=== PATIENT | male | born 1990 | race Caucasian/White ===

== ENCOUNTER 2016-05-21 01:53 | Emergency (ER) | payer MEDICAID ==
[~2016-05-21] VITALS: Ht 185.4 cm; Wt 77.1 kg
[2016-05-21 01:55] VITALS: BP 136/80
[2016-05-21] MEDS ORDERED: NKM (01:56)
[2016-05-21] MEDS ORDERED: Ketorolac 60mg Inj IM ONE (02:30)
[2016-05-21] MEDS ORDERED: ZOFRAN ODT4 MG ORAL (03:45)
[2016-05-21] MEDS ORDERED: IBUPROFEN600 MG ORAL (03:45)
--- NOTE | 2016-05-21 03:45 | Emergency Room Report ---
History of Present Illness General Chief Complaint: General Complaint Source: Patient, EMS Present Illness HPI Is a 26-year-old male with a history IV drug abuse with heroin. He presents with chief complaint of withdrawal symptoms. He complaining of body pain, vomiting and diarrhea. Last use of heroin was 2 days ago. He drove here from [place]. He called 911 from his car. Denies any other complaint. Allergies: Coded Allergies: No Known Allergies (Unverified , 05/21/16) Patient History Past Medical History: see triage record, old chart reviewed Past Surgical History: none Pertinent Family History: none Social History: Reports: drug use, smoking Immunizations: other Reviewed Nursing Documentation: PMH: Agreed, PSxH: Agreed Nursing Documentation-PMH Past Medical History: No Stated History Review of Systems Eye: Denies: blurred vision, eye pain ENT: Denies: ear pain, nose congestion, throat swelling Respiratory: Denies: cough, shortness of breath Cardiovascular: Denies: chest pain, palpitations Gastrointestinal: Reports: abdominal pain, diarrhea, nausea, vomiting Musculoskeletal: Denies: back pain, joint pain Skin: Denies: rash Neurological: Denies: headache, numbness Endocrine: Denies: increased thirst, increased urine Hematologic/Lymphatic: Denies: easy bruising All Other Systems: negative except mentioned in HPI Physical Exam Vital Signs Date Time Temp Pulse Resp B/P Pulse Ox O2 Delivery O2 Flow Rate FiO2 05/21/16 01:52 99.3 104 20 136/80 100 Room Air vitals unremarkable Sp02 EP Interpretation: reviewed, normal General Appearance: well appearing, no apparent distress, alert Head: normocephalic, atraumatic Eyes: bilateral eye EOMI, bilateral eye PERRL ENT: hearing grossly normal, normal pharynx Neck: full range of motion, supple, no meningismus Respiratory: chest non-tender, lungs clear, normal breath sounds Cardiovascular #1: regular rate, rhythm, no murmur Gastrointestinal: normal bowel sounds, non tender, no mass, no organomegaly, no bruit, non-distended Musculoskeletal: back normal, gait/station normal, normal range of motion Psychiatric: mood/affect normal Skin: warm/dry Medical Decision Making Diagnostic Impression: Primary Impression: Heroin addiction ER Course Patient presents with heroin abuse and withdrawal. He has no vomiting or diarrhea here. Sleeping comfortably. No complaint of suicidal thoughts or homicidal thought. We'll discharge home with we have inflammation. Last Vital Signs Date Time Temp Pulse Resp B/P Pulse Ox O2 Delivery O2 Flow Rate FiO2 05/21/16 01:55 99.3 104 20 136/80 100 Room Air Status: improved Disposition: HOME, SELF-CARE Condition: Stable Scripts Ondansetron Odt* (ZOFRAN ODT*) 4 Mg Tab.rapdis 4 MG ORAL Q6H Y for Nausea & Vomiting, #15 TAB 0 Refills Prov: NASIMA MUELLER M.D. 05/21/16 Ibuprofen* (MOTRIN*) 600 Mg Tablet 600 MG ORAL THREE TIMES A DAY, #20 TAB 0 Refills Prov: NASIMA MUELLER M.D. 05/21/16 Referrals: NOT CHOSEN [facility]/,REFERRING (PCP) Additional Instructions: Abstain from drugs and alcohol. Follow with rehabilitation. Followup with your DrJorge in 7 days. Return if worse. NASIMA MUELLER M.D. May 21, 2016 03:45
[2016-05-21 05:50] VITALS: BP 138/80
[2016-05-21 05:52] VITALS: BP 138/80
== END 2016-05-21 05:53 | disposition home or self-care (01) ==
LOC: EDBD 01:53 → EMR 02:05
DX: F11.20 Opioid dependence, uncomplicated (principal); F17.200 Nicotine dependence, unspecified, uncomplicated; R19.7 Diarrhea, unspecified; R10.9 Unspecified abdominal pain
CPT/HCPCS: 96372; 99284